=== PATIENT | female | born 1990 | race Caucasian/White ===

== ENCOUNTER 2017-02-03 09:53 | Emergency (ER) | payer OTHER ==
[~2017-02-03] VITALS: Ht 152.4 cm; Wt 86.4 kg
[2017-02-03] MEDS ORDERED: IBUPROFEN 100 MG/5 ML SUSPENSION UDCUP PO ONE ×2 (11:00→11:15)
[2017-02-03] MEDS ORDERED: PredniSONE 20 MG TABLET PO ONE (11:00)
[2017-02-03 12:44] VITALS: BP 123/81
== END 2017-02-03 13:05 | disposition home or self-care (01) ==
LOC: EMS 09:57
DX: J02.9 Acute pharyngitis, unspecified (principal); J03.90 Acute tonsillitis, unspecified
CPT/HCPCS: 99283; J7512